=== PATIENT | male | born 1990 | race African-American/Black ===

== ENCOUNTER 2017-04-29 14:57 | Emergency (ER) | payer SELFPAY ==
[~2017-04-29] VITALS: Ht 193 cm; Wt 113.4 kg
[2017-04-29 15:10] VITALS: BP 150/85
--- NOTE | 2017-04-29 15:37 | PHYS DOC ---
Past Medical History Past Medical History: No Pertinent History Alcohol Use: Occasionally Drug Use: Marijuana Adult General Chief Complaint Chief Complaint: SHINGLES HPI HPI Patient is a 26 year old male who presents with shingles rash for four days. Patient denies any previous history of shingles. Review of Systems Review of Systems Constitutional: Denies fever or chills [] Eyes: Denies change in visual acuity, redness, or eye pain [] HENT: Denies nasal congestion or sore throat [] Respiratory: Denies cough or shortness of breath [] Cardiovascular: No additional information not addressed in HPI [] GI: Denies abdominal pain, nausea, vomiting, bloody stools or diarrhea [] : Denies dysuria or hematuria [] Musculoskeletal: Denies back pain or joint pain [] Integument: Shingles rash Neurologic: Denies headache, focal weakness or sensory changes [] Endocrine: Denies polyuria or polydipsia [] Current Medications Current Medications Current Medications Medications (Trade) Dose Ordered Sig/Eamon Start Time Stop Time Status Last Admin Dose Admin Prednisone (Prednisone) 60 mg 1X ONCE 04/29/17 15:45 04/29/17 15:46 Allergies Allergies Allergies Coded Allergies Type Severity Reaction Last Updated Verified No Known Drug Allergies 04/29/17 No Physical Exam Physical Exam Constitutional: Well developed, well nourished, no acute distress, non-toxic appearance. [] HENT: Normocephalic, atraumatic, bilateral external ears normal, oropharynx moist, no oral exudates, nose normal. [] Eyes: PERRLA, EOMI, conjunctiva normal, no discharge. [] Neck: Normal range of motion, no tenderness, supple, no stridor. [] Cardiovascular:Heart rate regular rhythm, no murmur [] Lungs & Thorax: Bilateral breath sounds clear to auscultation [] Abdomen: Bowel sounds normal, soft, no tenderness, no masses, no pulsatile mass. Skin: mild amount of clustered grouped fluid filled vesicles following dermatome T5 consistent with shingles on the chest and flank Back: No tenderness, no CVA tenderness. [] Extremities: No tenderness, no cyanosis, no clubbing, ROM intact, no edema. [] Neurologic: Alert and oriented X 3, normal motor function, normal sensory function, no focal deficits noted. [] Psychologic: Affect normal, judgement normal, mood normal. [] Current Patient Data Vital Signs Vital Signs Date Time Temp Pulse Resp B/P (MAP) Pulse Ox O2 Delivery O2 Flow Rate FiO2 04/29/17 15:10 98.7 89 18 150/85 (106) 98 Room Air 98.7 EKG EKG [] Radiology/Procedures Radiology/Procedures [] Course & Med Decision Making Course & Med Decision Making Pertinent Labs and Imaging studies reviewed. (See chart for details) Patient has shingles for the last 4 days for the fifth dermatomes. We will discharge him with acyclovir, prednisone, and hydrocodone for severe pain. Provided him a primary care doctor for follow-up. Dragon Disclaimer Dragon Disclaimer This electronic medical record was generated, in whole or in part, using a voice recognition dictation system. Departure Departure Impression: Primary Impression: Shingles Disposition: 01 HOME, SELF-CARE Condition: STABLE Referrals: NO PCP (PCP) follow up with a primary care doctor from the list provided in 1-2 weeks Patient Instructions: Shingles, [id number] Additional Instructions: You were seen with shingles rash. Do not be around women and children or the elderly until the lesions are gone. Take the prescribed medicine as ordered. Follow-up with the primary care doctor from the list provided in the next 1-2 weeks. Scripts Hydrocodone/Apap 5-325 (NORCO 5-325 TABLET) 1 Each Tablet 1-2 TAB PO Q4-6HRS, #30 TAB Prov: LICO SAMUELS APRN 04/29/17 Prednisone (PREDNISONE) 50 Mg Tablet 1 TAB PO DAILY, #5 TAB Prov: LICO SAMUELS APRN 04/29/17 Acyclovir (ACYCLOVIR) 800 Mg Tablet 1 TAB PO 5XDAY, #50 TAB Prov: LICO SAMUELS APRN 04/29/17 Problem Qualifiers Primary Impression: Shingles Herpes zoster complications: without complications Qualified Codes: B02.9 - Zoster without complications LICO SAMUELS APRN Apr 29, 2017 15:37
[2017-04-29] MEDS ORDERED: ACYCLOVIR 200 MG CAPSULE. PO STA (15:43)
[2017-04-29] MEDS ORDERED: predniSONE 20 MG TABLET PO ONE (15:45)
[2017-04-29] MEDS ORDERED: PRED50TA PO (15:49)
[2017-04-29] MEDS ORDERED: HYDR-971 PO (15:49)
[2017-04-29] MEDS ORDERED: ACYC800T PO (15:49)
--- NOTE | 2017-04-30 09:58 | EKG ---
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
== END 2017-04-29 16:00 | disposition home or self-care (01) ==
LOC: ER 14:57
DX: B02.9 Zoster without complications (principal); F12.10 Cannabis abuse, uncomplicated
CPT/HCPCS: 93005; 99283; J7512